=== PATIENT | female | born 1995 | race American Indian/Alaskan Native ===

== ENCOUNTER 2018-06-04 17:28 | Emergency (ER) | payer BC ==
[2018-06-04 17:35] VITALS: BP 133/63
[2018-06-04 18:01] LABS: Bilirubin,Urine NEG (Negative); Blood,Urine NEG (Negative); Color,Urine Yellow (Yellow); Mucus,Urine FEW /HPF; Protein,Urine <15 mg/dL mg/dL (Negative); Urobilinogen,Urine < 2.0 mg/dL (<2.0)
[2018-06-04 18:17] LABS: HCG Qualitative,Urine Negative (Negative)
--- NOTE | 2018-06-04 18:27 | Emergency Department Report ---
- General Chief Complaint: Back Pain/Injury Stated Complaint: CHEST PAIN/SEVERE HEARTBURN Time Seen by Provider: 06/04/18 18:08 Source: patient Mode of arrival: Ambulatory Limitations: No Limitations - Related Data Previous Rx's Medication Instructions Recorded Last Taken Type Albuterol Sulfate [Ventolin Hfa] 18 gm IH Q6H PRN #1 hfa.aer.ad 06/04/18 Unknown Rx Amoxicillin/K Clav Tab [Augmentin 1 tab PO Q12HR #20 tab 06/04/18 Unknown Rx 875MG TAB] Cetirizine HCl [ZyrTEC] 10 mg PO QAM 14 Days #14 capsule 06/04/18 Unknown Rx Fluticasone [Flonase] 1 spray NS QDAY 14 Days #1 bottle 06/04/18 Unknown Rx Ibuprofen [Motrin] 800 mg PO Q8HR PRN #12 tablet 06/04/18 Unknown Rx guaiFENesin/CODEINE [Robitussin AC] 10 ml PO QHS PRN #70 oral.liqd 06/04/18 Unknown Rx methylPREDNISolone [Medrol Dose 4 mg PO DAILY #1 tab.ds.pk 06/04/18 Unknown Rx Uriel] Allergies Allergy/AdvReac Type Severity Reaction Status Date / Time No Known Allergies Allergy Unverified 06/04/18 17:32 ED Review of Systems ROS: Stated complaint: CHEST PAIN/SEVERE HEARTBURN Other details as noted in HPI ED Past Medical Hx - Past Medical History Previous Medical History?: No - Surgical History Past Surgical History?: No - Social History Smoking Status: Current Some Day Smoker Substance Use Type: None - Medications Home Medications: Home Medications Medication Instructions Recorded Confirmed Last Taken Type Albuterol Sulfate [Ventolin Hfa] 18 gm IH Q6H PRN #1 hfa.aer.ad 06/04/18 Unknown Rx Amoxicillin/K Clav Tab [Augmentin 1 tab PO Q12HR #20 tab 06/04/18 Unknown Rx 875MG TAB] Cetirizine HCl [ZyrTEC] 10 mg PO QAM 14 Days #14 capsule 06/04/18 Unknown Rx Fluticasone [Flonase] 1 spray NS QDAY 14 Days #1 bottle 06/04/18 Unknown Rx Ibuprofen [Motrin] 800 mg PO Q8HR PRN #12 tablet 06/04/18 Unknown Rx guaiFENesin/CODEINE [Robitussin AC] 10 ml PO QHS PRN #70 oral.liqd 06/04/18 Unknown Rx methylPREDNISolone [Medrol Dose 4 mg PO DAILY #1 tab.ds.pk 06/04/18 Unknown Rx Uriel] ED Physical Exam - General Limitations: No Limitations ED Course Vital Signs 06/04/18 06/04/18 06/04/18 17:32 18:53 19:47 Temperature 99.9 F H Pulse Rate 79 Pulse Rate [ 92 H Posterior] Respiratory 18 18 Rate Respiratory 21 Rate [Posterior ] Blood Pressure 133/63 O2 Sat by Pulse 99 Oximetry ED Medical Decision Making - Lab Data Lab Results 06/04/18 06/04/18 Range/Units 18:52 Unknown Urine Color Yellow (Yellow) Urine Turbidity Clear (Clear) Urine pH 5.0 (5.0-7.0) Ur Specific [place] 1.018 (1.003-1.030) Urine Protein <15 mg/dl (Negative) mg/dL Urine Glucose (UA) Neg (Negative) mg/dL Urine Ketones Neg (Negative) mg/dL Urine Blood Neg (Negative) Urine Nitrite Neg (Negative) Urine Bilirubin Neg (Negative) Urine Urobilinogen < 2.0 (<2.0) mg/dL Ur Leukocyte Esterase Tr (Negative) Urine WBC (Auto) 1.0 (0.0-6.0) /HPF Urine RBC (Auto) 3.0 (0.0-6.0) /HPF U Epithel Cells (Auto) 5.0 (0-13.0) /HPF Urine Mucus Few /HPF Urine HCG, Qual Negative (Negative) Influenza A (Rapid) Negative (Negative) Influenza B (Rapid) Negative (Negative) - Radiology Data Radiology results: report reviewed, image reviewed interpreted by me: Chest x-ray two-view images reviewed in no acute findings. Chest x-ray two-view dictated by radiologist and reported to myself and no acute findings. I am unable to properly do serial with results due to malfunction of [employer] and radiology system. Please refer to report for details - Medical Decision Making This is a 22-year-old female here for upper respiratory cough and congestion and complaining of congestion to her chest area. Cough is worse at night. Patient found to have scattered wheezes into the upper lung stevens and bilateral TM and nasal mucosa congested. Clear drainage from bilateral nasal mucosa. Patient had complain of lower back pain achy and her back exam is normal, urinalysis normal and negative . Influenza A and B-, X-ray of chest 2 views dictated by radiologist's report reviewed by myself. No acute findings and referred to report section for details. Patient given Decadron 10 mg IM, DuoNeb nebulizer 1, ibuprofen 800 mg by mouth and Benadryl 50 mg by mouth in emergency room. Up and reevaluation her lung sounds are clear and she says she feels better. Pain is better. Vital signs stable she is afebrile. I discussed with patient her diagnosis and treatment plan and she was understanding. Patient with upper respiratory cough and congestion and bronchitis and discharged home in stable condition with prescription for Zyrtec, Flonase, ibuprofen, Augmentin, Ventolin inhaler and Medrol Dosepak. Patient also given prescription for guaifenesin with codeine cough syrup to take at night. She is to follow-up with her primary care physician in 2-3 days and she voiced understanding and if her condition worsens to return to the emergency room. - Differential Diagnosis PNA, bronchitis, pleurisy, sinusitis, URI with cough and congestion Critical care attestation.: If time is entered above; I have spent that time in minutes in the direct care of this critically ill patient, excluding procedure time. ED Disposition Clinical Impression: Myalgia, URI with cough and congestion, Fever in adult Acute bronchitis Qualifiers: Bronchitis organism: other organism Qualified Code(s): J20.8 - Acute bronchitis due to other specified organisms Disposition: DC-01 TO HOME OR SELFCARE Is pt being admited?: No Does the pt Need Aspirin: No Condition: Stable Instructions: Acute Bronchitis (ED), Upper Respiratory Infection (ED), Fever in Adults (ED), Acute Cough (ED), Back Pain (ED) Additional Instructions: Please follow up with primary care physician in 2-3 days and if he do not have a primary care physician follow-up at the outside Medical Center Take Motrin for lower back pain and body aches. Please take this medication with food as it can cause upset stomach Take guaifenesin with codeine cough syrup once nightly as needed before bed time and this medication can cause drowsiness. Do not drive or operate heavy machinery while taking this medication Take Flonase, Medrol Dosepak and Zyrtec for upper respiratory with cough and congestion Take Augmentin for bronchitis but please take this medication with food as it can cause upset stomach. If you condition worsens, return to the emergency room. Flush nostrils with nasal saline wash. Referrals: PRIMARY CARE,MD [Primary Care Provider] - 2-3 Days [facility] [Outside] - 2-3 Days Forms: Work/School Release Form(ED), Accompanied Note
[2018-06-04] MEDS ORDERED: DECADRON IM STA (18:28)
[2018-06-04] MEDS ORDERED: DUONEB *Not for PRN Use IH ONE (18:30)
[2018-06-04] MEDS ORDERED: BENADRYL PO ONE (18:30)
[2018-06-04] MEDS ORDERED: IBUPROFEN PO ONE (18:30)
--- NOTE | 2018-06-04 19:32 | XRay Report ---
FINAL REPORT PROCEDURE: Chest. TECHNIQUE: PA and lateral views. HISTORY: Cough and fever. COMPARISON: No prior studies are available for comparison. FINDINGS: The heart and mediastinum appear normal. The lungs are clear and well expanded. There are no pleural effusions. The soft tissues and regional skeleton are unremarkable. IMPRESSION: Normal study.
== END 2018-06-04 21:20 | disposition home or self-care (01) ==
LOC: ED 17:28
DX: J06.9 Acute upper respiratory infection, unspecified (principal); J20.8 Acute bronchitis due to other specified organisms
CPT/HCPCS: 71046; 81001; 81025; 87400; 94640; 96372; 99284; J1100